=== PATIENT | female | born 1990 | race African-American/Black ===

== ENCOUNTER 2024-09-23 06:02 | Emergency (ER) | payer BC, SELFPAY ==
[2024-09-23] VITALS (10 sets, daily range): BP systolic 167; BP diastolic 87; PULSE 85–93; TEMP 37.2; O2SAT 100; BMI 39.3
--- NOTE | 2024-09-23 06:18 | ECG_ITS ---
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 Measurements Intervals [place] Rate: 84 P: 72 ID: [id number] QRS: 85 QRSD: 86 T: 55 QT: 368 QTc: 409 Interpretive Statements 1100 Sinus rhythm 9110 normal ECG No previous ECG available for comparison Electronically Signed On 09-23-2024 7:46:38 EDT by CHESTER SANCHEZ M.D.
--- NOTE | 2024-09-23 06:18 | ED.DIZZY1 ---
Documented by User: Chrissie Ayala MD 09/24/24 03:02 HPI - Dizziness General Chief Complaint: Dizziness Stated Complaint: DIZZINESS Time Seen by Provider: 09/23/24 06:04 Source: patient Mode of arrival: ambulance Limitations: no limitations History of Present Illness HPI Narrative: This 34-year-old female is brought to the emergency department by EMS from work. The patient states that she was working at her usual job at [employer] when she suddenly felt the room spinning. She felt really dizzy and like she could not stay upright while walking. She states she felt like she was going to fall backwards and passed out but some coworkers noticed this and grabbed her so she did not fall. She states that earlier in the night she had a right sided headache but the headache has since resolved. She had a cheeseburger for lunch around 3 AM. She denies any chest pain or shortness of breath. She has not had any blurred vision slurred speech or confusion although she states that her coworkers told her that she looked weird she does not know what they meant by that. She was taken to her supervisors office and sat down and when she tried to get up she had an additional episode of dizziness and EMS was called. She denies any neck pain. She has no focal weakness numbness or tingling. Her headache is resolved. She does admit that she gets very little sleep because she is a single mom. She states she works nights and then has to get her son to school, she states she wakes up almost every hour during her sleep hours and then picks him up from school helps him with his homework and dropped him off at his grandmother's before going back to work. She doubts the possibility of because she has not been sexually active for the past 3 months and has not missed any periods but one of her periods was late. She is not having any abdominal pain. She has had some nasal congestion recently and thought she was coming down with a cold or something since she was having a lot of nasal congestion and then the right sided headache. Related Data Previous Rx's ?Medication ?Instructions ?Recorded meclizine 25 mg tablet 25 mg PO BID PRN dizziness #20 tabs 09/23/24 Allergies Allergy/AdvReac Type Severity Reaction Status Date / Time No Known Drug Allergies Allergy Verified 09/23/24 05:59 Review of Systems ROS Status of ROS 10 or more systems reviewed and unremarkable except as noted in history and below PFSH PFSH Social History Little interest or pleasure in doing things: not at all Feeling down, depressed, or hopeless: not at all Exam Narrative Exam Narrative: Vital signs and Nursing Notes reviewed: Patient is afebrile with a normal pulse, blood pressure is elevated 167/87, she is not hypoxic with pulse ox of 100% on room air General: Awake, alert, oriented, no acute distress, lying comfortably on the stretcher-GCS 15 HEENT: Normocephalic atraumatic, mucous membranes are moist and pink, eyes are clear, normal conjunctiva, vision is grossly intact, mild horizontal nystagmus, posterior pharynx is normal in appearance. Tympanic membranes are normal bilaterally Neck: Supple, no meningeal signs, no anterior or posterior cervical lymphadenopathy Chest: Lungs are clear to auscultation with good air entry, there is no wheezing rhonchi or rales appreciated no accessory muscle use, patient is speaking in complete sentences-no chest wall tenderness to palpation CVS: Regular rate and rhythm S1-S2, no murmurs rubs or gallops, pulses are brisk and equal bilaterally ABD: Soft, nondistended, nontender, no rebound guarding or rigidity, bowel sounds are normal, no pulsatile masses appreciated Extremities: Moving all extremities, no lower extremity tenderness or swelling noted, negative Homans' sign, pulses are brisk and equal bilaterally Skin: Normal in appearance without rash,pallor, petechiae or purpura Neuro: No focal deficits, speech is clear, inner diameter grinder tool strength is intact, no facial droop is noted, negative pronator drift, positive rapid alternating hand movements, upper and lower extremity strength and sensation is intact. Constitutional Vital Signs, click to edit/add: Last Vital Signs Temp 99.0 F 09/23/24 05:55 Pulse 93 H 09/23/24 07:20 Resp 24 H 09/23/24 06:20 BP 167/87 H 09/23/24 05:56 Pulse Ox 100 09/23/24 05:55 O2 Del Method Room Air 09/23/24 05:55 Course Vital Signs Vital signs: Vital Signs Temperature 99.0 F 09/23/24 05:55 Pulse Rate 89 09/23/24 05:55 Respiratory Rate 18 09/23/24 05:55 Blood Pressure 167/87 H 09/23/24 05:55 Pulse Oximetry 100 09/23/24 05:55 Oxygen Delivery Method Room Air 09/23/24 05:55 Temperature 99.0 F 09/23/24 05:55 Pulse Rate 93 H 09/23/24 07:20 Respiratory Rate 24 H 09/23/24 06:20 Blood Pressure 167/87 H 09/23/24 05:56 Pulse Oximetry 100 09/23/24 05:55 Oxygen Delivery Method Room Air 09/23/24 05:55 MDM - Dizziness MDM Narrative Medical decision making narrative: This 34-year-old female, non-smoker is brought to the emergency department by EMS from work after she had an episode of dizziness and ataxia. This happened after she had had lunch. She does admit that she works nights and gets very little sleep during the day. He denies any chest pain or shortness of breath. She doubts the possibility of because she has not been sexually active since July. Her neuroexam is normal. She does have very mild horizontal nystagmus. Vision is grossly intact. She has recently had some nasal congestion and a right sided headache and thought she was coming down with a cold. CT scan of the brain, cardiac workup and COVID-19 testing was ordered. EKG is normal sinus rhythm at 84 bpm with a normal axis and no acute changes. She was medicated with Tylenol and meclizine. Lab Data Labs: Lab Results 09/23/24 09/23/24 09/23/24 Range/Units 06:41 06:44 06:48 WBC 6.8 (4.0-11.0) 10^3/uL RBC 4.83 (4.20-5.40) 10^6/uL Hgb 9.2 L (12.0-16.0) g/dL Hct 30.5 L (36.0-48.0) % MCV 63.1 L (81.0-99.0) fL MCH 19.0 L (26.7-34.0) pg MCHC 30.2 (29.9-35.2) g/dL RDW 21.3 H (11.0-15.0) % Plt Count 267 (150-450) 10^3/uL MPV 9.7 (9.5-13.5) fL Neut % (Auto) 61.7 (43.0-75.0) % Lymph % (Auto) 30.8 (20.5-60.0) % Stearns % (Auto) 6.1 (1.7-12.0) % Eos % (Auto) 0.9 (0.9-7.0) % Baso % (Auto) 0.4 (0.2-2.0) % Neut # (Auto) 4.2 (1.4-6.5) 10^3/uL Lymph # (Auto) 2.1 (1.2-3.8) 10^3/uL Stearns # (Auto) 0.4 (0.3-0.8) 10^3/uL Eos # (Auto) 0.1 (0.0-0.7) 10^3/uL Baso # (Auto) 0.0 (0.0-0.1) 10^3/uL Abs Immat Gran (auto) 0.01 (0.00-0.03) 10^3/uL Imm/Tot Granulo (auto) 0.1 (0.0-0.5) % Sodium 139 (136-145) mmol/L Potassium 3.5 (3.5-5.1) mmol/L Chloride 104 (98-107) mmol/L Carbon Dioxide 27.7 (21.0-32.0) mmol/L Anion Gap 10.8 BUN 11.0 (7.0-18.0) mg/dL Creatinine 0.77 (0.55-1.02) mg/dL Est GFR ( Amer) >60 (>=60 mL/min/1.73m^2) Est GFR (Non-Af Amer) >60 (>=60 mL/min/1.73m^2) BUN/Creatinine Ratio 14.3 Glucose 89 (74-106) mg/dL Calcium 8.6 (8.5-10.1) mg/dL Total Bilirubin 0.5 (0.2-1.0) mg/dL AST 12 L (15-37) U/L ALT 13 L (14-59) U/L Alkaline Phosphatase 96 (46-116) U/L Troponin I High Sens <4.0 L (4.0-51.3) pg/mL Total Protein 7.8 (6.4-8.2) g/dL Albumin 3.8 (3.4-5.0) g/dL Globulin 4.0 g/dL Albumin/Globulin Ratio 0.9 Urine Color Yellow (YELLOW) Urine Clarity Clear (CLEAR) Urine pH 6.0 (5.0-9.0) Ur Specific [place] 1.025 (1.005-1.025) Urine Protein Trace (NEG/TRACE) mg/dL Urine Glucose (UA) Negative (NEGATIVE) mg/dL Urine Ketones Trace A (NEGATIVE) mg/dL Urine Occult Blood Negative (NEGATIVE) Urine Nitrite Negative (NEGATIVE) Urine Bilirubin Negative (NEGATIVE) Urine Urobilinogen 0.2 (0.2-1.0) EU/dL Ur Leukocyte Esterase Negative (NEGATIVE) Urine RBC 0-2 (0-2) #/HPF Urine WBC 2-5 A (NONE SEEN) #/HPF Ur Squamous Epith Cells Many A (NONE/RARE) #/LPF Ur Transition Epith Cell Rare A (NONE SEEN) #/LPF Urine Crystals None seen (None Seen) #/HPF Urine Bacteria Large A (NONE SEEN) #/HPF Urine Casts Seen A (NONE SEEN) #/LPF Hyaline Casts Rare Urine Mucus Moderate A (NONE SEEN) Ur [place] [place] HCG, Qual Negative (NEGATIVE) SARS-CoV-2 Ag (CV2AG) Negative (NEGATIVE) ECG Data Attestation: I personally reviewed and interpreted this ECG as follows: (Sinus rhythm 84 bpm, normal axis, normal intervals, no acute ST segment elevation or T wave inversion) Discharge Plan Discharge Chief Complaint: Dizziness Clinical Impression: Dizziness, Vertigo Patient Disposition: Home, Self-Care Time of Disposition Decision: 07:40 Condition: Good Mode of Transportation: Private Vehicle Prescriptions / Home Meds: New meclizine 25 mg tablet 25 mg PO BID PRN (Reason: dizziness) Qty: 20 0RF Print Language: Libyan Instructions: Vertigo (ED), Dizziness (ED) Discharge Date/Time: 09/23/24 07:48 Documented by User: Kyra Dave DO 09/23/24 07:43 HPI - Dizziness General Chief Complaint: Dizziness Stated Complaint: DIZZINESS Time Seen by Provider: 09/23/24 06:04 Related Data Previous Rx's ?Medication ?Instructions ?Recorded meclizine 25 mg tablet 25 mg PO BID PRN dizziness #20 tabs 09/23/24 Allergies Allergy/AdvReac Type Severity Reaction Status Date / Time No Known Drug Allergies Allergy Verified 09/23/24 05:59 PFSH PFSH Social History Little interest or pleasure in doing things: not at all Feeling down, depressed, or hopeless: not at all Exam Constitutional Vital Signs, click to edit/add: Last Vital Signs Temp 99.0 F 09/23/24 05:55 Pulse 93 H 09/23/24 07:20 Resp 24 H 09/23/24 06:20 BP 167/87 H 09/23/24 05:56 Pulse Ox 100 09/23/24 05:55 O2 Del Method Room Air 09/23/24 05:55 Course Vital Signs Vital signs: Vital Signs Temperature 99.0 F 09/23/24 05:55 Pulse Rate 89 09/23/24 05:55 Respiratory Rate 18 09/23/24 05:55 Blood Pressure 167/87 H 09/23/24 05:55 Pulse Oximetry 100 09/23/24 05:55 Oxygen Delivery Method Room Air 09/23/24 05:55 Temperature 99.0 F 09/23/24 05:55 Pulse Rate 93 H 09/23/24 07:20 Respiratory Rate 24 H 09/23/24 06:20 Blood Pressure 167/87 H 09/23/24 05:56 Pulse Oximetry 100 09/23/24 05:55 Oxygen Delivery Method Room Air 09/23/24 05:55 MDM - Dizziness MDM Narrative Medical decision making narrative: This 34-year-old female, non-smoker is brought to the emergency department by EMS from work after she had an episode of dizziness and ataxia. This happened after she had had lunch. She does admit that she works nights and gets very little sleep during the day. He denies any chest pain or shortness of breath. She doubts the possibility of because she has not been sexually active since July. Her neuroexam is normal. She does have very mild horizontal nystagmus. Vision is grossly intact. She has recently had some nasal congestion and a right sided headache and thought she was coming down with a cold. CT scan of the brain, cardiac workup and COVID-19 testing was ordered. EKG is normal sinus rhythm at 84 bpm with a normal axis and no acute changes. She was medicated with Tylenol and meclizine. Patient was signed to me by Dr. Ayala for pending labs and imaging. Patient is feeling better after medication and less dizzy. Patient CT brain is negative for acute findings. Labs are negative for acute findings. She is anemic which when I talked to the patient about it she said this is chronic for her. She said she has never been on any iron supplementation and she did not really follow-up after the diagnosis of anemia. She is not sure what her hemoglobin typically runs. She has not noticed any dark stools or blood loss. Patient does have a low-grade temp of 99. She also reports that her nose has been running a lot more today than it has been. Most likely coming down with a viral syndrome that is causing vertigo symptoms. Patient was given off work tonight and tomorrow night. Return to ED if worsening symptoms otherwise follow-up with family doctor. Differential Diagnosis Differential diagnosis: Likely benign paroxysmal positional vertigo, acute vestibular neuronitis and other (Viral syndrome) Lab Data Attestation: I reviewed the patient's lab results. Labs: Lab Results 09/23/24 09/23/24 09/23/24 Range/Units 06:41 06:44 06:48 WBC 6.8 (4.0-11.0) 10^3/uL RBC 4.83 (4.20-5.40) 10^6/uL Hgb 9.2 L (12.0-16.0) g/dL Hct 30.5 L (36.0-48.0) % MCV 63.1 L (81.0-99.0) fL MCH 19.0 L (26.7-34.0) pg MCHC 30.2 (29.9-35.2) g/dL RDW 21.3 H (11.0-15.0) % Plt Count 267 (150-450) 10^3/uL MPV 9.7 (9.5-13.5) fL Neut % (Auto) 61.7 (43.0-75.0) % Lymph % (Auto) 30.8 (20.5-60.0) % Stearns % (Auto) 6.1 (1.7-12.0) % Eos % (Auto) 0.9 (0.9-7.0) % Baso % (Auto) 0.4 (0.2-2.0) % Neut # (Auto) 4.2 (1.4-6.5) 10^3/uL Lymph # (Auto) 2.1 (1.2-3.8) 10^3/uL [place] # (Auto) 0.4 (0.3-0.8) 10^3/uL Eos # (Auto) 0.1 (0.0-0.7) 10^3/uL Baso # (Auto) 0.0 (0.0-0.1) 10^3/uL Abs Immat Gran (auto) 0.01 (0.00-0.03) 10^3/uL Imm/Tot Granulo (auto) 0.1 (0.0-0.5) % Sodium 139 (136-145) mmol/L Potassium 3.5 (3.5-5.1) mmol/L Chloride 104 (98-107) mmol/L Carbon Dioxide 27.7 (21.0-32.0) mmol/L Anion Gap 10.8 BUN 11.0 (7.0-18.0) mg/dL Creatinine 0.77 (0.55-1.02) mg/dL Est GFR ( Amer) >60 (>=60 mL/min/1.73m^2) Est GFR (Non-Af Amer) >60 (>=60 mL/min/1.73m^2) BUN/Creatinine Ratio 14.3 Glucose 89 (74-106) mg/dL Calcium 8.6 (8.5-10.1) mg/dL Total Bilirubin 0.5 (0.2-1.0) mg/dL AST 12 L (15-37) U/L ALT 13 L (14-59) U/L Alkaline Phosphatase 96 (46-116) U/L Troponin I High Sens <4.0 L (4.0-51.3) pg/mL Total Protein 7.8 (6.4-8.2) g/dL Albumin 3.8 (3.4-5.0) g/dL Globulin 4.0 g/dL Albumin/Globulin Ratio 0.9 Urine Color Yellow (YELLOW) Urine Clarity Clear (CLEAR) Urine pH 6.0 (5.0-9.0) Ur Specific [place] 1.025 (1.005-1.025) Urine Protein Trace (NEG/TRACE) mg/dL Urine Glucose (UA) Negative (NEGATIVE) mg/dL Urine Ketones Trace A (NEGATIVE) mg/dL Urine Occult Blood Negative (NEGATIVE) Urine Nitrite Negative (NEGATIVE) Urine Bilirubin Negative (NEGATIVE) Urine Urobilinogen 0.2 (0.2-1.0) EU/dL Ur Leukocyte Esterase Negative (NEGATIVE) Urine RBC 0-2 (0-2) #/HPF Urine WBC 2-5 A (NONE SEEN) #/HPF Ur Squamous Epith Cells Many A (NONE/RARE) #/LPF Ur Transition Epith Cell Rare A (NONE SEEN) #/LPF Urine Crystals None seen (None Seen) #/HPF Urine Bacteria Large A (NONE SEEN) #/HPF Urine Casts Seen A (NONE SEEN) #/LPF Hyaline Casts Rare Urine Mucus Moderate A (NONE SEEN) Ur [place] [place] HCG, Qual Negative (NEGATIVE) SARS-CoV-2 Ag (CV2AG) Negative (NEGATIVE) Imaging Data CT scan - head: Attestation: I have reviewed the pertinent imaging results. Discharge Plan Discharge Chief Complaint: Dizziness Clinical Impression: Dizziness, Vertigo Patient Disposition: Home, Self-Care Time of Disposition Decision: 07:40 Condition: Good Mode of Transportation: Private Vehicle Prescriptions / Home Meds: New meclizine 25 mg tablet 25 mg PO BID PRN (Reason: dizziness) Qty: 20 0RF Print Language: Libyan Instructions: Vertigo (ED), Dizziness (ED) Discharge Date/Time: 09/23/24 07:48
[2024-09-23] MEDS: MECLIZINE HCL 12.5 MG TABLET 25 MG PO (06:51)
[2024-09-23] MEDS: ACETAMINOPHEN 325 MG TABLET 650 MG PO (06:51)
[2024-09-23 06:59] LABS: Basophils Percent Auto 0.4 % (0.2-2.0); Eosinophils Absolute Auto 0.1 10^3/uL (0.0-0.7); Eosinophils Percent Auto 0.9 % (0.9-7.0); Hematocrit 30.5 % (36.0-48.0); Hemoglobin 9.2 g/dL (12.0-16.0); Immature Granulocytes Abs Auto 0.01 10^3/uL (0.00-0.03); Immature Granulocytes Pct Auto 0.1 % (0.0-0.5); Lymphocytes Absolute Auto 2.1 10^3/uL (1.2-3.8); Lymphocytes Percent Auto 30.8 % (20.5-60.0); Mean Corpuscular HGB Conc 30.2 g/dL (29.9-35.2); Mean Corpuscular Volume 63.1 fL (81.0-99.0); Mean Platelet Volume 9.7 fL (9.5-13.5); Monocytes Absolute Auto 0.4 10^3/uL (0.3-0.8); Monocytes Percent Auto 6.1 % (1.7-12.0); Neutrophils Absolute Auto 4.2 10^3/uL (1.4-6.5); Neutrophils Percent Auto 61.7 % (43.0-75.0); Platelet Count 267 10^3/uL (150-450); Red Cell Distribution Width 21.3 % (11.0-15.0); White Blood Count 6.8 10^3/uL (4.0-11.0)
[2024-09-23 07:01] LABS: Bilirubin Urine NEGATIVE (NEGATIVE); Blood Urine NEGATIVE (NEGATIVE); Clarity Urine CLEAR (CLEAR); Color Urine YELLOW (YELLOW); Glucose Urine UA NEGATIVE (NEGATIVE); Ketones Urine TRACE mg/dL (NEGATIVE); Leukocyte Esterase Urine NEGATIVE (NEGATIVE); Nitrite Urine NEGATIVE (NEGATIVE); Protein Urine TRACE mg/dL (NEG/TRACE); Specific Gravity Urine 1.025 (1.005-1.025); Urobilinogen Urine 0.2 EU/dL (0.2-1.0)
[2024-09-23 07:10] LABS: HCG Qualitative Urine* NEGATIVE (NEGATIVE); Internal Control Within Normal Limits
[2024-09-23 07:13] LABS: Internal Control Within Normal Limits; SARS-CoV-2 Ag NEGATIVE (NEGATIVE)
[2024-09-23 07:15] LABS: Bacteria Urine LARGE #/HPF (NONE SEEN); Mucus Urine MODERATE (NONE SEEN); RBC Urine 0-2 #/HPF (0-2); Squamous Epithelial Cell Urine MANY #/LPF (NONE/RARE); Transitional Epi Cells Urine RARE #/LPF (NONE SEEN)
[2024-09-23 07:16] LABS: Cast Seen? SEEN #/LPF (NONE SEEN); Crystals Seen? None Seen #/HPF (None Seen); Hyaline Casts Urine RARE; Urine Culture Indicated YES-FRMC
[2024-09-23 07:17] LABS: Red Blood Count 4.83 10^6/uL (4.20-5.40)
[2024-09-23 07:20] LABS: Alanine Aminotransferase 13 U/L (14-59); Albumin Globulin Ratio 0.9; Albumin Level 3.8 g/dL (3.4-5.0); Alkaline Phosphatase 96 U/L (46-116); Anion Gap 10.8; Aspartate Amino Transferase 12 U/L (15-37); BUN Creatinine Ratio 14.3; Bilirubin Total 0.5 mg/dL (0.2-1.0); Calcium 8.6 mg/dL (8.5-10.1); Carbon Dioxide 27.7 mmol/L (21.0-32.0); Chloride 104 mmol/L (98-107); Estimated GFR (African America >60 (>=60 mL/min/1.73m^2); Estimated GFR (Non-African Ame >60 (>=60 mL/min/1.73m^2); Glucose 89 mg/dL (74-106); Potassium 3.5 mmol/L (3.5-5.1); Sodium 139 mmol/L (136-145); Total Protein 7.8 g/dL (6.4-8.2); Troponin I High Sensitivity <4.0 pg/mL (4.0-51.3)
== END 2024-09-23 07:48 | disposition home or self-care (01) ==
PROVIDERS: Emergency Provider Emergency Medicine
DX: R42 Dizziness and giddiness (principal); R50.9 Fever, unspecified
CPT/HCPCS: 36415; 70450; 80053; 81001; 84484; 84703; 85025; 87086; 87811; 93005; 99285